=== PATIENT | female | born 1950 | race Caucasian/White ===

== ENCOUNTER 2018-02-08 13:28 | Outpatient (CLI) | payer MEDICARE, BC ==
--- NOTE | 2018-02-08 15:37 | MRI ---
MRI RIGHT ANKLE WITHOUT CONTRAST 02/08/18 HISTORY: Ankle pain. Twisted ankle. COMPARISON: None. FINDINGS: LIGAMENTS: AITFL, PITFL are intact. There is granulation scar insitu of the ATFL which is partially torn from th e fibular origin. PTFL is intact. CFL is thickened. There is some hemorrhage within the deep deltoid ligament. TENDONS: The extensor and flexor tendons are intact. 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 Achilles tendon is intact. MUSCLES: Low grade edema within the flexor hallucis longus and soleus muscles. BONES: No fracture. No malalignment. No stress edema. IMPRESSION: 1. Healing high grade ATFL tear with granulation tissue and scar insitu. 2. Small volume hematoma within the deep deltoid ligament from contusion. 3. Thickened CFL likely from prior injury. POS: [facility]
== END 2018-02-08 13:29 | disposition home or self-care (01) ==
LOC: SCSMRI 13:28
PROVIDERS: ATTEND Podiatrist
DX: M25.571 Pain in right ankle and joints of right foot (principal); G89.29 Other chronic pain; S93.491D Sprain of other ligament of right ankle, subsequent encounter; S90.01XA Contusion of right ankle, initial encounter

== ENCOUNTER 2019-03-20 12:51 | Outpatient (CLI) | payer MEDICARE, BC ==
--- NOTE | 2019-03-20 13:15 | MMO ---
Bilateral MAMMO Bilat Screen [facility]. CLINICAL HISTORY: Patient is 68 years old and is seen for screening. The patient has the following family history of breast cancer: mother, at age 46, at 56 and sister, at age 66. The patient has a history of melanoma. VIEWS: The views performed were: bilateral craniocaudal with tomosynthesis and bilateral mediolateral oblique with tomosynthesis. FILMS COMPARED: The present examination has been compared to prior imaging studies performed at [facility] on 01/03/2014, 01/09/2015, 01/13/2016 and 01/13/2017. MAMMOGRAM FINDINGS: There are scattered fibroglandular densities. There are stable benign appearing calcifications seen in both breasts. There are no suspicious masses, suspicious calcifications, or new areas of architectural distortion. IMPRESSION: THERE IS NO MAMMOGRAPHIC EVIDENCE OF MALIGNANCY. A ROUTINE FOLLOW-UP MAMMOGRAM IN 1 YEAR IS RECOMMENDED. THE RESULTS OF THIS EXAM WERE SENT TO THE PATIENT. ACR BI-RADS Category 2 - Benign finding MAMMOGRAPHY NOTE: 1. A negative mammogram report should not delay a biopsy if a dominant of clinically suspicious mass is present. 2. Approximately 10% to 15% of breast cancers are not detected by mammography. 3. Adenosis and dense breasts may obscure an underlying neoplasm. Reported by: GABE WILSON MD Electonically Signed: [id number]
== END 2019-03-20 12:52 | disposition home or self-care (01) ==
LOC: BICMAMMO 12:51
PROVIDERS: ATTEND Internal Medicine
DX: Z12.31 Encounter for screening mammogram for malignant neoplasm of breast (principal); Z80.3 Family history of malignant neoplasm of breast; Z85.820 Personal history of malignant melanoma of skin
CPT/HCPCS: 77063; 77067

== ENCOUNTER 2020-03-25 16:09 | Outpatient (CLI) | payer MEDICARE, BC ==
--- NOTE | 2020-03-26 08:59 | MMO ---
Bilateral MAMMO Bilat Screen [facility]. CLINICAL HISTORY: Patient is 69 years old and is seen for screening. The patient has the following family history of breast cancer: mother, at age 46, at 56 and sister, at age 66. The patient has a history of melanoma. VIEWS: The views performed were: bilateral craniocaudal with tomosynthesis and bilateral mediolateral oblique with tomosynthesis. FILMS COMPARED: The present examination has been compared to prior imaging studies performed at [facility] on 01/09/2015, 01/13/2016, 01/13/2017 and 03/20/2019. This study has been interpreted with the assistance of computer-aided detection. MAMMOGRAM FINDINGS: There are scattered fibroglandular densities. Benign calcifications are noted bilaterally. There are no suspicious masses, suspicious calcifications, or new areas of architectural distortion. IMPRESSION: THERE IS NO MAMMOGRAPHIC EVIDENCE OF MALIGNANCY. A ROUTINE FOLLOW-UP MAMMOGRAM IN 1 YEAR IS RECOMMENDED. THE RESULTS OF THIS EXAM WERE SENT TO THE PATIENT. ACR BI-RADS Category 2 - Benign finding MAMMOGRAPHY NOTE: 1. A negative mammogram report should not delay a biopsy if a dominant of clinically suspicious mass is present. 2. Approximately 10% to 15% of breast cancers are not detected by mammography. 3. Adenosis and dense breasts may obscure an underlying neoplasm. Reported by: YAQUELIN WHITMORE MD Electonically Signed: [id number]
== END 2020-03-25 16:10 | disposition home or self-care (01) ==
LOC: BICMAMMO 16:09
PROVIDERS: ATTEND Internal Medicine
DX: Z12.31 Encounter for screening mammogram for malignant neoplasm of breast (principal); Z85.820 Personal history of malignant melanoma of skin; Z80.3 Family history of malignant neoplasm of breast
CPT/HCPCS: 77063; 77067

== ENCOUNTER 2021-03-26 08:10 | Outpatient (CLI) | payer MEDICARE, BC | END 2021-03-26 08:11 | disposition home or self-care (01) | LOC: BICMAMMO 08:10 | PROVIDERS: ATTEND Internal Medicine | DX: Z12.31 Encounter for screening mammogram for malignant neoplasm of breast (principal); Z80.3 Family history of malignant neoplasm of breast; Z85.820 Personal history of malignant melanoma of skin | CPT/HCPCS: 77063; 77067 ==

== ENCOUNTER 2022-03-28 08:09 | Outpatient (CLI) | payer MEDICARE, BC | END 2022-03-28 08:10 | disposition home or self-care (01) | LOC: BICMAMMO 08:09 | PROVIDERS: ATTEND Internal Medicine | DX: Z12.31 Encounter for screening mammogram for malignant neoplasm of breast (principal); Z85.820 Personal history of malignant melanoma of skin; Z80.3 Family history of malignant neoplasm of breast | CPT/HCPCS: 77063; 77067 ==

== ENCOUNTER 2023-09-27 10:13 | Outpatient (CLI) | payer MEDICARE | END 2023-09-27 10:14 | disposition home or self-care (01) | LOC: BICMAMMO 10:13 | PROVIDERS: ATTEND Family Medicine Sports Medicine | DX: Z13.820 Encounter for screening for osteoporosis (principal); M81.0 Age-related osteoporosis without current pathological fracture; Z78.0 Asymptomatic menopausal state | CPT/HCPCS: 77080 ==